=== PATIENT | male | born 1985 | race Caucasian/White ===

== ENCOUNTER 2018-11-11 16:34 | Emergency (ER) | payer SELFPAY | END 2018-11-11 17:15 | disposition home or self-care (01) | LOC: NAV ERS 16:34 | DX: T15.02XA Foreign body in cornea, left eye, initial encounter (principal); F17.210 Nicotine dependence, cigarettes, uncomplicated; W45.8XXA Other foreign body or object entering through skin, initial encounter | CPT/HCPCS: 65220 ==

== ENCOUNTER 2020-09-01 02:46 | Emergency (ER) | payer SELFPAY ==
[2020-09-01] MEDS ORDERED: Boostrix 0.5 ML (Tdap) VIAL ONE (03:08)
[2020-09-01] MEDS ORDERED: Ketorolac Tromethamine 30 MG/ML VIAL ONE (03:08)
== END 2020-09-01 03:42 | disposition home or self-care (01) ==
LOC: NAV ERS 02:46
DX: S61.021A Laceration with foreign body of right thumb without damage to nail, initial encounter (principal); F17.210 Nicotine dependence, cigarettes, uncomplicated; W31.2XXA Contact with powered woodworking and forming machines, initial encounter
CPT/HCPCS: 12001; 90471; 90715; 96372; J1885

== ENCOUNTER 2024-05-10 15:09 | Emergency (ER) | payer OTHER, SELFPAY ==
[2024-05-10] MEDS ORDERED: Sodium Chloride 0.9% 0 ML ONE (15:33)
[2024-05-10] MEDS ORDERED: cefTRIAXone (ROCEPHIN) 1 GM VIAL ONE (15:33)
[2024-05-10] MEDS ORDERED: Morphine 2 MG/ML VIAL ONE ×2 (15:33→17:05)
[2024-05-10] MEDS ORDERED: Morphine 4 MG/ML VIAL ONE (15:33)
[2024-05-10] MEDS ORDERED: Lidocaine 1% (PF) 30 ML VIAL ONE (15:46)
[2024-05-10] MEDS ORDERED: Sodium Chloride 0.9% 100 ML ONE (15:48)
[2024-05-10] MEDS ORDERED: CEFAZOLIN 1 GM VIAL ONE (15:48)
[2024-05-10] MEDS ORDERED: Bacitracin 1 PK ONE (16:55)
== END 2024-05-10 17:27 | disposition home or self-care (01) ==
LOC: NAV ERS 15:09
DX: S01.511A Laceration without foreign body of lip, initial encounter (principal); S03.2XXA Dislocation of tooth, initial encounter; F17.210 Nicotine dependence, cigarettes, uncomplicated; W26.8XXA Contact with other sharp object(s), not elsewhere classified, initial encounter; Y93.89 Activity, other specified
CPT/HCPCS: 40650; 70486; 96365; 96375; 96376; J0690; J0696; J2272

== ENCOUNTER 2025-03-02 08:59 | Emergency (ER) | payer OTHER, SELFPAY ==
[2025-03-02] MEDS ORDERED: Fluorescein Opthalmic Strip ONE (09:06)
[2025-03-02] MEDS ORDERED: Tetracaine 0.5% PF 4 ML BOT ONE (09:07)
== END 2025-03-02 10:10 | disposition home or self-care (01) ==
LOC: NAV ERS 08:59
DX: T15.01XA Foreign body in cornea, right eye, initial encounter (principal); W44.8XXA Other foreign body entering into or through a natural orifice, initial encounter
CPT/HCPCS: 65220; 99283